=== PATIENT | female | born 1970 | race Caucasian/White ===

== ENCOUNTER 2022-05-15 11:56 | Emergency (ER) | payer BC ==
[2022-05-15] MEDS ORDERED: CLINDAMYCIN HC150 MG PO (12:10)
[2022-05-15 13:11] VITALS: BP 159/100
== END 2022-05-15 13:17 | disposition home or self-care (01) | DRG 159 ==
LOC: ED 11:56
DX: K02.9 Dental caries, unspecified (principal)